=== PATIENT | male | born 1990 | race Hispanic/Latino ===

== ENCOUNTER 2018-02-04 13:49 | Emergency (ER) | payer BC, OTHER | END 2018-02-04 15:23 | disposition home or self-care (01) | LOC: EDH 13:49 | DX: S93.491A Sprain of other ligament of right ankle, initial encounter (principal); Z87.891 Personal history of nicotine dependence; X58.XXXA Exposure to other specified factors, initial encounter; Y93.89 Activity, other specified; Y92.89 Other specified places as the place of occurrence of the external cause; Y99.8 Other external cause status | CPT/HCPCS: 73610 ==

== ENCOUNTER 2018-07-27 18:55 | Emergency (ER) | payer SELFPAY | END 2018-07-27 19:28 | disposition home or self-care (01) | LOC: EDH 18:55 | DX: R06.6 Hiccough (principal) ==

== ENCOUNTER 2019-04-26 10:16 | Emergency (ER) | payer BC | END 2019-04-26 10:44 | disposition home or self-care (01) | LOC: EDH 10:16 | DX: M54.5 Low back pain (principal) ==

== ENCOUNTER 2020-12-08 18:52 | Inpatient (IN) | payer BC, OTHER ==
[~2020-12-08] VITALS: Ht 170.2 cm; Wt 92.3 kg
[2020-12-08 20:09] LABS: APPEARANCE,URINE Clear (CLEAR); BILIRUBIN,URINE Negative (NEGATIVE); COLOR,URINE Yellow (YELLOW); GLUCOSE, URINE (UA) Negative (NEGATIVE); KETONES,URINE Trace mg/dL (NEGATIVE); LEUKOCYTE ESTERASE ,URINE Trace (NEGATIVE); NITRATE,URINE Negative (NEGATIVE); OCCULT BLOOD,URINE Negative (NEGATIVE); PROTEIN,URINE Trace mg/dL (NEGATIVE)
[2020-12-08] MEDS ORDERED: ACETAMINOPHEN 325 MG TAB ONE (20:13)
[2020-12-08] MEDS ORDERED: KETOROLAC TROMETHAMINE 30MG/ML ONE (20:13)
[2020-12-08 20:22] LABS: BACTERIA,URINE Few /HPF (None Seen); MUCUS,URINE Few LPF (None Seen); RBC,URINE 0-1 /HPF (0-1); SQUAMOUS EPITHELIAL CELL,UR Few /HPF (0-2)
[2020-12-08] MEDS ORDERED: SODIUM CHLORIDE 0.9% 1000ML 2,000 ML IV ONE (20:28)
[2020-12-08 20:29] LABS: BASOPHILS % (AUTO) 0.2 % (0.0-5.0); EOSINOPHILS % (AUTO) 0.4 % (0.0-8.0); HEMATOCRIT 43.1 % (42-54); LYMPHOCYTES % (AUTO) 4.6 % (21.0-51.0); MEAN CORPUSCULAR HEMOGLOBIN 29.5 pg (27.0-33.0); MEAN CORPUSCULAR HGB CONC 33.6 g/dL (32.0-36.0); MEAN CORPUSCULAR VOLUME 87.6 fL (79-99); MONOCYTES % (AUTO) 7.5 % (3.0-13.0); NEUTROPHILS % (AUTO) 86.3 % (40.0-77.0); PLATELET COUNT (AUTO) 328 K/uL (130-400); RED BLOOD CELL COUNT(AUTO) 4.92 MIL/uL (4.50-6.20)
[2020-12-08] MEDS ORDERED: CEFTRIAXONE SODIUM 1 GM ONE (20:29)
[2020-12-08] MEDS ORDERED: AZITHROMYCIN 250 MG TABLET PO ONE (20:29)
[2020-12-08 20:48] LABS: CREATININE 1.3 mg/dL (0.5-1.5); POTASSIUM 3.9 mmol/L (3.5-5.1)
[2020-12-08 20:53] LABS: ALBUMIN 3.7 g/dL (3.5-5.0); BILIRUBIN,TOTAL 0.4 mg/dL (0.2-1.0); TOTAL PROTEIN, SERUM 8.5 g/dL (6.0-8.3)
[2020-12-09] MEDS ORDERED: ZOLPIDEM TARTRATE 5 MG TAB PO PRN (00:45)
[2020-12-09] MEDS ORDERED: ACETAMINOPHEN 325 MG TAB PO PRN ×2 (00:45)
[2020-12-09] MEDS ORDERED: ONDANSETRON HCL 4 MG/2 ML VIAL IV PRN (00:45)
[2020-12-09] MEDS ORDERED: IBUPROFEN 800 MG TAB PO PRN (00:45)
[2020-12-09] MEDS ORDERED: LACTULOSE 20 GM/30 ML UDCUP PO PRN (00:45)
[2020-12-09] MEDS ORDERED: FAMOTIDINE 20MG TAB 20 MG TAB ONE (01:17)
[2020-12-09] MEDS ORDERED: DOXYCYCLINE 100MG+NS 250ML 250 ML IV ONE (01:18)
[2020-12-09] MEDS ORDERED: IBUPROFEN 800 MG TAB ONE (01:18)
[2020-12-09] MEDS ORDERED: SODIUM CHLORIDE 0.9% 1000ML 1,000 ML IV ONE (01:19)
[2020-12-09] MEDS ORDERED: ACETAMINOPHEN 325 MG TAB ONE (01:56)
[2020-12-09 02:04] LABS: INR 1.23 (0.85-1.15); PROTHROMBIN TIME 13.2 SEC (9.6-11.6)
[2020-12-09 02:06] LABS: PARTIAL THROMBOPLASTIN TIME 27.9 SEC (26.3-35.5)
[2020-12-09 02:35] LABS: HEMOGLOBIN A1C 5.5 % (4.0-6.0)
[2020-12-09 03:00] VITALS: BP 130/79
[2020-12-09] MEDS ORDERED: KETOROLAC TROMETHAMINE 30MG/ML ONE (04:07)
[2020-12-09 04:08] VITALS: BP 117/61
[2020-12-09] MEDS ORDERED: ACETAMINOPHEN-CODEINE 300/30MG TAB PO PRN (04:15)
[2020-12-09] MEDS: SODIUM CHLORIDE 0.9% 1000ML 1,000 ML IV SCH ×3 (04:16→20:45)
[2020-12-09 08:00] VITALS: BP 94/44
[2020-12-09] MEDS: CEFTRIAXONE SODIUM 1 GM IV SCH ×2 (08:36→21:02)
[2020-12-09] MEDS: FAMOTIDINE 20MG TAB 20 MG TAB PO SCH ×2 (08:36→21:03)
[2020-12-09 11:00] VITALS: BP 112/82
[2020-12-09] MEDS: DOXYCYCLINE 100MG+NS 250ML 250 ML IV SCH (13:07)
[2020-12-09] MEDS: KETOROLAC TROMETHAMINE 30MG/ML IV PRN (18:10)
[2020-12-09 20:08] VITALS: BP 119/69
[2020-12-10 00:08] VITALS: BP 118/68
[2020-12-10] MEDS: DOXYCYCLINE 100MG+NS 250ML 250 ML IV SCH ×2 (01:52→13:32)
[2020-12-10] MEDS: SODIUM CHLORIDE 0.9% 1000ML 1,000 ML IV SCH ×2 (01:52→15:49)
[2020-12-10 04:08] VITALS: BP 121/72
[2020-12-10 08:00] VITALS: BP 111/65
[2020-12-10] MEDS: CEFTRIAXONE SODIUM 1 GM IV SCH (09:31)
[2020-12-10] MEDS: FAMOTIDINE 20MG TAB 20 MG TAB PO SCH ×2 (09:31→20:52)
[2020-12-10 11:00] VITALS: BP 111/53
[2020-12-10] MEDS: ZOSYN 3.375GM+NS 50ML 50 ML IV SCH ×2 (15:46→20:52)
[2020-12-10 16:00] VITALS: BP 130/74
[2020-12-10 20:04] VITALS: BP 132/71
[2020-12-10] MEDS: KETOROLAC TROMETHAMINE 30MG/ML IV PRN (20:48)
[2020-12-11] VITALS (7 sets, daily range): BP systolic 116–140; BP diastolic 64–85
[2020-12-11] MEDS: SODIUM CHLORIDE 0.9% 1000ML 1,000 ML IV SCH ×3 (01:43→22:45)
[2020-12-11] MEDS: DOXYCYCLINE 100MG+NS 250ML 250 ML IV SCH ×2 (01:43→12:37)
[2020-12-11] MEDS: ZOSYN 3.375GM+NS 50ML 50 ML IV SCH ×2 (04:58→15:27)
[2020-12-11 06:01] LABS: HEMATOCRIT 37.5 % (42-54); MEAN CORPUSCULAR HEMOGLOBIN 29.2 pg (27.0-33.0); MEAN CORPUSCULAR HGB CONC 32.5 g/dL (32.0-36.0); MEAN CORPUSCULAR VOLUME 89.7 fL (79-99); RED BLOOD CELL COUNT(AUTO) 4.18 MIL/uL (4.50-6.20); RED CELL DISTRIBUTION WIDTH 12.4 % (11.0-15.5); WHITE BLOOD COUNT (AUTO) 11.2 K/uL (4.8-10.8)
[2020-12-11 06:26] LABS: CREATININE 1.3 mg/dL (0.5-1.5); MAGNESIUM 2.1 mg/dL (1.80-2.40); POTASSIUM 4.3 mmol/L (3.5-5.1)
[2020-12-11] MEDS: FAMOTIDINE 20MG TAB 20 MG TAB PO SCH ×2 (11:10→20:22)
[2020-12-12] MEDS: ZOSYN 3.375GM+NS 50ML 50 ML IV SCH ×3 (00:09→16:18)
[2020-12-12] MEDS: SODIUM CHLORIDE 0.9% 1000ML 1,000 ML IV SCH ×3 (00:30→16:18)
[2020-12-12] MEDS: DOXYCYCLINE 100MG+NS 250ML 250 ML IV SCH ×2 (00:30→13:13)
[2020-12-12 03:32] VITALS: BP 120/68
[2020-12-12 08:13] VITALS: BP 138/88
[2020-12-12 08:37] LABS: BASOPHILS % (AUTO) 0.6 % (0.0-5.0); EOSINOPHILS % (AUTO) 2.4 % (0.0-8.0); HEMATOCRIT 39.8 % (42-54); LYMPHOCYTES % (AUTO) 19.1 % (21.0-51.0); MEAN CORPUSCULAR HEMOGLOBIN 29.4 pg (27.0-33.0); MEAN CORPUSCULAR HGB CONC 33.4 g/dL (32.0-36.0); MEAN CORPUSCULAR VOLUME 87.9 fL (79-99); MONOCYTES % (AUTO) 8.8 % (3.0-13.0); NEUTROPHILS % (AUTO) 67.5 % (40.0-77.0); PLATELET COUNT (AUTO) 376 K/uL (130-400); RED BLOOD CELL COUNT(AUTO) 4.53 MIL/uL (4.50-6.20); RED CELL DISTRIBUTION WIDTH 12.2 % (11.0-15.5); WHITE BLOOD COUNT (AUTO) 8.9 K/uL (4.8-10.8)
[2020-12-12 08:49] LABS: ALBUMIN 2.9 g/dL (3.5-5.0); BILIRUBIN,TOTAL 0.4 mg/dL (0.2-1.0); CREATININE 1.1 mg/dL (0.5-1.5); POTASSIUM 3.5 mmol/L (3.5-5.1); TOTAL PROTEIN, SERUM 7.3 g/dL (6.0-8.3)
[2020-12-12] MEDS: FAMOTIDINE 20MG TAB 20 MG TAB PO SCH (09:27)
[2020-12-12 11:22] VITALS: BP 129/76
[2020-12-12 16:40] VITALS: BP 127/74
== END 2020-12-12 20:15 | disposition home or self-care (01) | DRG 728 ==
LOC: EDH 18:52 → EDHIP 18:53 → 3AH 12-09 02:37
PROVIDERS: ADMIT Internal Medicine; ATTEND Internal Medicine
DX: N45.3 Epididymo-orchitis (principal); E87.1 Hypo-osmolality and hyponatremia; N39.0 Urinary tract infection, site not specified; A64 Unspecified sexually transmitted disease; E87.8 Other disorders of electrolyte and fluid balance, not elsewhere classified; D72.829 Elevated white blood cell count, unspecified; N50.3 Cyst of epididymis; E66.9 Obesity, unspecified; Z68.31 Body mass index [BMI] 31.0-31.9, adult
CPT/HCPCS: 36415; 71045; 74176; 76870; 80048; 80053; 81001; 83036; 83605; 83735; 84145; 85025; 85027; 85610; 85730; 87040; 87486; 87797; 93005; G0378; J0696; J1885; J2543; J3490; J7030